=== PATIENT | male | born 1995 | race African-American/Black ===

== ENCOUNTER 2021-05-21 00:09 | Emergency (ER) | payer OTHER, SELFPAY | END 2021-05-21 01:35 | disposition home or self-care (01) | LOC: CSHERS 00:09 | DX: M79.89 Other specified soft tissue disorders (principal) ==

== ENCOUNTER 2022-10-02 04:40 | Emergency (ER) | payer SELFPAY ==
[2022-10-02] MEDS ORDERED: HYDROcodone/Acetaminophen 5/325 mg Tablet ONE (05:39)
== END 2022-10-02 07:10 | disposition home or self-care (01) ==
LOC: CSHERS 04:40
DX: S62.141A Displaced fracture of body of hamate [unciform] bone, right wrist, initial encounter for closed fracture (principal); W22.01XA Walked into wall, initial encounter